=== PATIENT | female | born 1970 | race African-American/Black ===

== ENCOUNTER 2017-02-22 18:33 | Emergency (ER) | payer BC ==
[~2017-02-22 18:33] MED LIST: PROZAC PO; SEROQUEL1C PO; SEROQUEL200 MG PO
== END 2017-02-22 19:40 | disposition home or self-care (01) ==
LOC: ER 18:33
PROC: 2W3KX1Z Immobilization of Left Finger using Splint (ICD-10-PCS; principal; 2017-02-22)
DX: S62.621A Displaced fracture of middle phalanx of left index finger, initial encounter for closed fracture (principal); Z79.899 Other long term (current) drug therapy; X58.XXXA Exposure to other specified factors, initial encounter
CPT/HCPCS: 73140-LT; 99284